=== PATIENT | male | born 1965 | race Caucasian/White ===

== ENCOUNTER 2017-05-10 21:24 | Emergency (ER) | payer OTHER ==
[~2017-05-10] VITALS: Ht 172.7 cm; Wt 91.2 kg
[~2017-05-10 21:24] MED LIST: PRLSR20 PO
[2017-05-10 21:30] VITALS: TEMP 36.3; Ht 172.7 cm; Wt 91.2 kg
[2017-05-10] MEDS ORDERED: PROPARACAINE HCL 0.5% OP SOLN 15 ML BTL OP STA (21:38)
[2017-05-10] MEDS ORDERED: IBUP-103 PO (21:49)
[2017-05-10] MEDS ORDERED: ERYTHROMYCIN OP OINT 5 MG/GM 3.5 GM TUBE OP ONE (22:15)
[2017-05-10] MEDS ORDERED: DIPHTHERIA/TETANUS/PERTUSSIS 0.5 ML SYR/VIAL IM. ONE (22:15)
[2017-05-10 22:22] VITALS: BP 166/88; PULSE 86; O2SAT 99
--- NOTE | 2017-05-10 22:33 | EMERGENCY ROOM VISIT NOTE ---
History First contact with patient: 21:37 Chief Complaint: EYE ASSESSMENT Stated Complaint: OBJECT IN L EYE History of Present Illness The patient is a 52 year old male who presents to the Emergency Room with complaints of a piece of metal in his left eye. The patient reports that he was using an angle edge grinder machine approximately 4 hours ago. He tried to remove the piece of metal without success, and currently rates his discomfort a 10 out of 10. He denies any significant blurred vision, but does report mild photosensitivity. Patient is uncertain of his last tetanus immunization. Review of Systems 10 system review was performed and was negative except for pertinent positives and negatives as indicated in history of present illness Past Medical/Surgical History Medical Problems: (1) Acute gastroenteritis (2) Back pain (3) Back pain (4) Back pain (5) Bilateral flank pain (6) Cervicalgia (7) Chest pain (8) Chest pain (9) Dysuria (10) GERD (gastroesophageal reflux disease) (11) Renal Colic (12) Urinary frequency Family History Diabetes mellitus Heart disease Hypertension Kidney disease Kidney stones Social History Smoking Status: Former Smoker Smokeless Tobacco Use: Yes Alcohol Use: occasionally Marital Status: Housing Status: lives with family Occupation Status: employed Current/Historical Medications Scheduled Omeprazole (Prilosec), 20 MG PO Q2D Scheduled PRN Ibuprofen Tab (Advil), 200-600 MG PO Q4H PRN for Pain Physical Exam Vital Signs Date Time Temp Pulse Resp B/P (MAP) Pulse Ox O2 Delivery O2 Flow Rate FiO2 05/10/17 22:22 86 18 166/88 99 05/10/17 21:30 36.3 86 18 166/88 99 Room Air Right Eye Acuity: 20/15 Left Eye Acuity: 20/25 Physical Exam CONSTITUTIONAL: Healthy and well nourished. Alert and oriented X 3 with positive affect. HEENT: Normocephalic, atraumatic. Pupils equal, round and reactive. Examination of the left eye does not show any bloody drainage or significant conjunctival injection. EOMs intact. No globe deformity noted. NECK: Full active range of motion without discomfort. INTEGUMENTARY: No rash or other significant dermatologic conditions noted. NEUROLOGIC: Cranial nerves II-XII grossly intact. No focal neurologic deficits noted. Medical Decision & Procedures Medications Administered Medications (Trade) Dose Ordered Sig/Mariano Route Start Time Stop Time Status Last Admin Dose Admin Proparacaine HCl (Alcaine 0.5% Oph Soln) 2 drops NOW STAT OP 05/10/17 21:38 05/10/17 21:39 DC 05/10/17 21:45 2 DROPS Diphtheria/ Pertussis/Tetanus Vacc (Adacel Inj) 0.5 ml ONCE ONCE IM. 05/10/17 22:15 05/10/17 22:16 DC 05/10/17 22:21 0.5 ML Erythromycin (Erythromycin Oph Oint) 1 appln NOW ONCE OP 05/10/17 22:15 05/10/17 22:16 DC 05/10/17 22:21 1 APPLN Procedure Slit-lamp and fluorescein exam were performed. 2 drops of Alcaine were instilled into the eye with complete relief of symptoms. Examination shows a metallic foreign body at 10:00 near the corneal margin. Using an Brewster brush, the metal was successfully removed. There was a significant rust ring formation. Additional debridement was performed with the Brewster brush; however, I did not feel comfortable trying to debride the whole depth of the debris. Fluorescein exam shows additional corneal abrasions around that site, likely from the patient's attempt at removing it. Negative Tia test. ED Course Patient history and physical exam were performed. Nurse's notes were reviewed. Vital signs were reviewed, showing an elevated blood pressure 166/88. Slit- lamp and fluorescein exam were performed to show evidence for a metallic corneal foreign body. This was removed using an Edilia brush. The remaining rust ring was also debrided, however I did not feel comfortable going the whole depth of the rust ring for debridement. The patient was instructed to follow- up with his field account manager at [facility]. He will be provided erythromycin ophthalmic ointment from the emergency department. He was encouraged alternate ibuprofen and Tylenol as needed for pain. He refused any prescription analgesics, was happy with plan of care, and denied any pain at the conclusion of my exam. The patient was also administered Adacel IM prior to discharge. Medical Decision Medication Reconcilliation Current Medication List: was personally reviewed by me Blood Pressure Screening Patient's blood pressure: Elevated blood pressure Blood pressure disposition: Elevated BP felt to be situational Impression Primary Impression: Corneal foreign body with residual material Departure Information Dispostion Home / Self-Care Referrals Tay Lozano D.O. (PCP) Alvaro Elder O.D. Forms HOME CARE DOCUMENTATION FORM, IMPORTANT VISIT INFORMATION Patient Instructions My [email or web address] Additional Instructions Applying erythromycin eye ointment, 1 cm strip every 6 hours. Intermittently apply a cool compress for additional relief. Ibuprofen or Tylenol as needed for pain. Follow-up with your field account manager tomorrow for further reevaluation. Tell them that you had a piece of metal removed from the eye, but a rust ring persists. Problem Qualifiers Primary Impression: Corneal foreign body with residual material Encounter type: initial encounter Laterality: left Qualified Codes: T15.02XA - Foreign body in cornea, left eye, initial encounter
== END 2017-05-10 22:23 | disposition home or self-care (01) ==
LOC: C.EDB 21:25 → C.EDD 22:23
DX: T15.02XA Foreign body in cornea, left eye, initial encounter (principal); W31.2XXA Contact with powered woodworking and forming machines, initial encounter; R03.0 Elevated blood-pressure reading, without diagnosis of hypertension; Z23 Encounter for immunization; Z87.891 Personal history of nicotine dependence; Z83.3 Family history of diabetes mellitus; Z82.49 Family history of ischemic heart disease and other diseases of the circulatory system; Z84.1 Family history of disorders of kidney and ureter

== ENCOUNTER 2017-09-23 16:37 | Emergency (ER) | payer OTHER ==
[~2017-09-23] VITALS: Ht 172.7 cm; Wt 94.4 kg
[~2017-09-23 16:37] MED LIST changes: +IBUP-103 PO
[2017-09-23 16:40] VITALS: TEMP 36.5; Ht 172.7 cm; Wt 94.4 kg
[2017-09-23] MEDS ORDERED: PROPARACAINE HCL 0.5% OP SOLN 15 ML BTL OP STA (16:46)
[2017-09-23] MEDS ORDERED: CIPROFLOXACIN HCL 0.3% OP SOLN 2.5 ML BTL OP STA (17:07)
--- NOTE | 2017-09-23 17:33 | EMERGENCY ROOM VISIT NOTE ---
ED Visit Note First contact with patient: 16:45 CHIEF COMPLAINT: Foreign body sensation of the left eye HISTORY OF PRESENT ILLNESS: This 52-year-old male patient presents to the emergency department, ambulatory complaining of pain and foreign body sensation in the left eye. The patient states last week on Thursday, he was drilling wood, cutting and filing would, welding metal, and weed eating. He believes he may have gotten a piece of metal, copper, aluminum, or wood in his eye at that time. He has been experiencing a foreign body sensation in the left eye since this time. There has been a constant moderate pain and irritation, redness and tearing in the eye. The vision has not been decreased over all. The patient does not wear contacts. The patient rates the pain as 1/10. The patient has not had previous injuries to this eye. Tetanus shot is up to date. REVIEW OF SYSTEMS: A 6 system review of systems was completed with positives and pertinent negatives listed in the HPI. ALLERGIES: None MEDICATIONS: Prilosec, aspirin PMH: Bipolar, GERD, arthritis SOCIAL HISTORY: Patient lives locally with family. He denies alcohol use. Patient does chew snuff and admits to smoking marijuana. PHYSICAL EXAM: Vital Signs: Reviewed Nurse's notes, vital signs stable. Visual acuity 20/25 - Right, 20/30 - Left. GENERAL: This is a 52-year-old male, in no acute distress, but who is uncomfortable from the eye problem. Well-developed well-nourished. EYES: The pupils are equal round and reactive to light and accommodation. EOMs are full and without tenderness. There is watery discharge from the left eye which is injected. There is no obvious abrasion, foreign body, or abnormality visible on the cornea. There is no foreign body visible under the eyelid after lid eversion. No foreign body was seen embedded in the cornea under slit lamp exam. The cornea was clear and no hyphema was seen. Fluorescein uptake was observed with ultraviolet light significant for very minimal uptake over the inferior aspect of the iris, potentially indicating small debris, but no obvious abrasion, laceration, or foreign body noted. EMERGENCY DEPARTMENT COURSE: I examined the patient. Alcaine 2 drops were placed in the patient's left eye. A slit lamp exam was performed as above. A moistened cotton swab was used to clear out the cornea and eyelid. Small debris removed onto the swab. Due to this finding as well as abnormality on slit lamp examination with Fluorescein stain, I recommended a hilda lens irrigation to clear out any other debris. The Alcaine drops were left in the room to be used prior to Hilda Lens irrigation. The patient was unable to tolerate the Hilda lens irrigation and advised nursing staff that he would like to leave. Ciloxan two drops was placed in the patient's left eye. I reassessed the patient and noted the Alcaine drops were no longer present. The ED RN states she did not remove them from the room. I questioned the patient and his if they happened to take the drops and advised them that they could not use them without medical supervision due to risks associated with further injury. The patient and his advised us multiple times they did not take the drops. I did even look through the trash can without finding the drops. I again advised the patient and his that they are not to use the drops due to risk of ongoing injury. The patient was given Ciloxan drops to take home and use as directed. I advised him to follow-up with ophthalmology and the patient became aggressive and states "I will just see my regular eye doctor, just get my papers so I can leave." I tried discussing with the patient the difference between an english as a second language teacher and roller stainer and strongly recommended ophthalmology follow-up. Discharge instructions reviewed. The patient was discharged home in good condition. I attest that I have personally reviewed the patient's current medication list. Patient was found to have normal blood pressure on screening and does not require follow-up. Etiologies such as conjunctivitis, corneal abrasion, uveitis, glaucoma, periorbital cellulitis, orbital cellulitis, abscess, trauma, as well as others were entertained. DIAGNOSIS: Corneal abrasion of the left eye The chart was completed utilizing [employer] Speech voice recognition software. Grammatical errors, random word insertions, pronoun errors, and incomplete sentences are an occasional consequence of this system due to software limitations, ambient noise, and hardware issues. Any formal questions or concerns about the content, text, or information contained within the body of this dictation should be directly addressed to the provider for clarification. Problem List Medical Problems: (1) Acute gastroenteritis Status: Resolved (2) Back pain Status: Resolved (3) Back pain Status: Resolved (4) Back pain Status: Resolved (5) Bilateral flank pain Status: Resolved (6) Cervicalgia Status: Chronic (7) Chest pain Status: Resolved (8) Chest pain Status: Resolved (9) Dysuria Status: Resolved (10) GERD (gastroesophageal reflux disease) Status: Chronic (11) Renal Colic Status: Resolved (12) Urinary frequency Status: Resolved Current/Historical Medications Scheduled Omeprazole (Prilosec), 20 MG PO Q2D Scheduled PRN Ibuprofen Tab (Advil), 200-600 MG PO Q4H PRN for Pain Allergies Coded Allergies: No Known Allergies (Unverified , 05/10/17) Vital Signs Date Time Temp Pulse Resp B/P (MAP) Pulse Ox O2 Delivery O2 Flow Rate FiO2 09/23/17 17:51 92 18 152/81 93 09/23/17 16:40 36.5 104 20 137/85 95 Room Air Medications Administered Medications (Trade) Dose Ordered Sig/Mariano Route Start Time Stop Time Status Last Admin Dose Admin Proparacaine HCl (Alcaine 0.5% Oph Soln) 2 drops NOW STAT OP 09/23/17 16:46 09/23/17 16:47 DC 09/23/17 16:46 2 DROPS Ciprofloxacin HCl (Ciprofloxacin 0.3% Op Soln) 2 drops NOW STAT OP 09/23/17 17:07 09/23/17 17:09 DC 09/23/17 17:29 2 DROPS Departure Information Impression Primary Impression: Corneal foreign body with residual material Dispostion Home / Self-Care Condition GOOD Referrals Tay Lozano D.O. (PCP) Eliezer Rush MD Patient Instructions ED Eye Injury Corneal Abrasion, My [facility] Additional Instructions You have been treated in the Emergency Department today for your Corneal Abrasion. You have been prescribed Ciloxan eye drops. This is an antibiotic which will help to prevent an infection from developing in your affected eye. You should use 2 drops in the affected eye every 2 hours while awake for the first 2 days, then every 4 hours for the remaining 5 days. This is a total of a 7-day course for these antibiotic eye drops. For pain control, you can use the following [id number] medicines (if >12 yo): Ibuprofen(Motrin, Advil) may be used for fever or pain. Use 600mg every six hours as needed. Take with food. Avoid using more than 2400mg in a 24 hour period. Do not use 2400mg per day for more than three consecutive days without physician direction. Prolonged inappropriate use can lead to stomach upset or ulcers. (AND/OR) Acetaminophen(Tylenol) may be used for fever or pain. Use 1000mg every six hours as needed. Avoid using more than 3000mg in a 24 hour period. You should relax in a quiet, dark place for the rest of the day. You should wear sunglasses while outside for the next few days until your eyes are not as sensitive to the light. ALWAYS WEAR EYE PROTECTION WHILE WORKING WITH WOOD AND/OR METAL. If you find that you took the Alcaine drops from the ED despite being told not to, DO NOT USE THEM unless directed otherwise by ophthalmology. You should schedule a follow-up appointment in 1-2 days with your Primary Care Provider or established Eye Doctor (Shopping Centre Manager) for further evaluation and treatment of your Corneal Abrasion. You were provided with contact information for a local roller stainer. As discussed, an roller stainer is different than your normal Systematic Theology Professor. Optometrists are not actual medical doctors and generally do not deal with foreign bodies or other abnormalities of the eye. Return to the Emergency Department if your current symptoms worsen despite treatment course outlined above, or if you develop any of the following symptoms : intractable pain, visual disturbances, loss of vision, increased redness, swelling, drainage, or if you develop a fever. Problem Qualifiers Primary Impression: Corneal foreign body with residual material Encounter type: initial encounter Laterality: left Qualified Codes: T15.02XA - Foreign body in cornea, left eye, initial encounter
[2017-09-23 17:51] VITALS: BP 152/81; PULSE 92; O2SAT 93
== END 2017-09-23 17:52 | disposition home or self-care (01) ==
LOC: C.EDB 16:38 → C.EDD 17:52
DX: S05.02XA Injury of conjunctiva and corneal abrasion without foreign body, left eye, initial encounter (principal); W26.8XXA Contact with other sharp object(s), not elsewhere classified, initial encounter; K21.9 Gastro-esophageal reflux disease without esophagitis; Z79.82 Long term (current) use of aspirin; Z79.899 Other long term (current) drug therapy